=== PATIENT | male | born 1960 | race Caucasian/White ===

== ENCOUNTER 2023-02-16 15:09 | Outpatient (CLI) | payer OTHER ==
--- NOTE | 2023-02-17 10:57 | XRAY Report ---
PROCEDURE: Cervical Spine Complete INDICATIONS: LEFT CERVICAL RADICULOPATHY TECHNIQUE: 5 views of the cervical spine acquired. COMPARISON: None. FINDINGS: Bones: No fractures or dislocations to the C7 level. At least moderate multilevel degenerative naranjo es with disc height loss, endplate spurring, and facet arthropathy. Multilevel bony foraminal narrow ing present within the cervical spine, left side worse than right, most pronounced at the lower cervi chris spine, ranging from mild-severe narrowing. Soft tissues: No prevertebral soft tissue swelling. IMPRESSION: Multilevel degenerative changes of the cervical spine. Reviewed by: Kenneth Oro MD on 02/17/2023 10:56 AM PDT Approved by: Kenneth Oro MD on 02/17/2023 10:56 AM PDT Station ID: [id number]
== END 2023-02-16 15:10 | disposition home or self-care (01) ==
LOC: DI 15:09
PROVIDERS: ATTEND Family Medicine
DX: M47.812 Spondylosis without myelopathy or radiculopathy, cervical region (principal)